=== PATIENT | female | born 2000 | race Hispanic/Latino ===

== ENCOUNTER 2023-11-02 19:56 | Emergency (ER) | payer SELFPAY ==
[2023-11-02 21:20] LABS: Specific Gravity 1.019 (1.005-1.030)
[2023-11-02 21:23] LABS: Specific Gravity 1.019 (1.005-1.030); Urine Bacteria <20 /HPF (<20); Urine Bilirubin NEGATIVE (Negative); Urine Blood Negative (Negative); Urine Clarity Extremely Turbid (Clear); Urine Color Light-Yellow (Yellow); Urine Culture Reflex Order REFLEXED; Urine Glucose NEGATIVE (Negative); Urine Ketones NEGATIVE (Negative); Urine Micro Reflex YN NO BILL MICROSCOPIC; Urine Mucus Slight /HPF (None Seen); Urine Nitrite NEGATIVE (Negative); Urine Protein TRACE (Negative); Urine RBC <5 /HPF (None Seen); Urine Urobilinogen Normal (Normal); Urine WBC 20-50 /HPF (<5); Urine WBC Clump Rare /HPF (None Seen)
[2023-11-02] MEDS ORDERED: NITROFURAN MACRO 100 MG CAP PO ONE (21:41)
--- NOTE | 2023-11-02 21:42 | EDPHYS ---
Physician Documentation [facility] Name: Dejah Lugo Age: 23 yrs Sex: Female : 2000 Arrival Date: 11/02/2023 Time: 19:56 Bed 9 Private MD: ED Physician Cash Wolf HPI: 11/01 20:06 This 23 yrs old Female presents to ER via Unassigned with complaints of Pain sp4 With Urination. 21:44 The patient presents with urinary symptoms, dysuria. Onset: The symptoms/episode sb4 began/occurred 3 day(s) ago. Modifying factors: The symptoms are alleviated by nothing, the symptoms are aggravated by nothing. 21:46 Associated signs and symptoms: The patient has no apparent associated signs or sb4 symptoms. The patient has experienced a previous episode, many years ago. The patient has not recently seen a physician. 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 - Infectious Disease History:: Denies. - Social history:: Smoking status: Patient denies any tobacco usage or history of. ROS: 21:46 Positive for urinary symptoms, burning with urination, sb4 21:46 Constitutional: Negative for fever, chills, and weight loss, 21:46 All other systems are negative, Exam: 21:46 Constitutional: This is a well developed, well nourished patient who is awake, alert, sb4 and in no acute distress. Head/Face: Normocephalic, atraumatic. Eyes: Extra-ocular motions intact. Periorbital areas with no swelling, redness, or edema. Cardiovascular: Regular rate and rhythm with a normal S1 and S2. Respiratory: Lungs have equal breath sounds bilaterally, clear to auscultation and percussion. No rales, rhonchi or wheezes noted. No increased work of breathing, no retractions or nasal flaring. Abdomen/GI: Soft, non-tender, no distension. Back: No spinal tenderness. No costovertebral tenderness. Full range of motion. Skin: Warm, dry with normal turgor. Normal color with no rashes, no lesions, and no evidence of cellulitis. Vital Signs: 20:31 BP 144 / 106; Pulse 96; Resp 16; Temp 98.2(O); Pulse Ox 97% ; Weight 85.73 kg; Height 5 kd3 ft. 1 in. ; Pain 5/10; 20:31 Body Mass Index 35.71 (85.73 kg, 154.94 cm) kd3 20:31 Pain Scale: Adult kd3 MDM: 20:21 Patient medically screened. sp4 21:40 Data reviewed: vital signs, nurses notes, lab test result(s), and as a result, I will sb4 discharge patient. Care significantly affected by the following chronic conditions: Obesity. Counseling: I had a detailed discussion with the patient and/or guardian regarding the historical points, exam findings, and any diagnostic results supporting the discharge/admit diagnosis, the presence of at least one elevated blood pressure reading (>120/80) during this emergency department visit, lab results, to return to the emergency department if symptoms worsen or persist or if there are any questions or concerns that arise at home. 11/01 20:39 Order name: UAM; Complete Time: 21:36 sb4 11/01 20:39 Order name: Test, Urine; Complete Time: 21:37 sb4 11/01 21:38 Order name: Urine Culture EDMS Administered Medications: 21:49 Drug: Macrobid PO 100 mg PO once; administer with food Route: PO; as6 21:54 Follow up: Response: No adverse reaction as6 Disposition: 11/02 21:38 Co-signature as Attending Physician, Cash Wolf MD I agree with the assessment sp4 and plan of care. I reviewed the patient's care provided by the Advanced Practice Provider and agree with the diagnosis and treatment plan. Disposition Summary: 11/02/23 21:41 Discharge Ordered Notes: Location: Home sb4 Problem: new sb4 Symptoms: are unchanged sb4 Condition: Stable sb4 Diagnosis - UTI/ Urinary tract infection, site not specified sb4 Followup: sb4 - With: Emergency Department - When: As needed - Reason: Trouble breathing, Worsening of condition Discharge Instructions: - Discharge Summary Sheet sb4 - Urinary Tract Infection, Adult, [id number] sb4 Forms: - Antibiotic Education sb4 - Patient Portal Instructions sb4 - Leadership Thank You Letter sb4 Prescriptions: - Macrobid 100 mg Oral Capsule - take 1 capsule ORAL route every 12 hours for 7 days; 14 capsule; Refills: 0, sb4 Product Selection Permitted Signatures: Dispatcher [employer] Wilian Curran RN RN as6 Ave Aguayo RN RN kd3 Eileen Resendiz, PAMalihaC PAMaged sb4 Cash Wolf MD MD sp4 Corrections: (The following items were deleted from the chart) 11/01 21:46 21:44 Modifying factors: The symptoms are alleviated by nothing, sb4 sb4
--- NOTE | 2023-11-02 21:42 | ER ---
Nurse's Notes [facility] Name: Dejah Lugo Age: 23 yrs Sex: Female : 2000 Arrival Date: 11/02/2023 Time: 19:56 Bed 9 Private MD: Diagnosis: UTI/ Urinary tract infection, site not specified Presentation: 11/01 20:32 Chief complaint: Patient states: I just want to get tested to see if i have a uti. It kd3 kim when i urinate since 3 days ago. Coronavirus screen: Vaccine status: Patient reports being unvaccinated. Ebola Screen: No symptoms or risks identified at this time. Initial Sepsis Screen: Does the patient meet any 2 criteria? No. Patient's initial sepsis screen is negative. Does the patient have a suspected source of infection? No. Patient's initial sepsis screen is negative. Risk Assessment: Do you want to hurt yourself or someone else? Patient reports no desire to harm self or others. Onset of symptoms was November 02, 2023. 20:32 Method Of Arrival: Ambulatory kd3 20:32 Acuity: TATO 4 kd3 Triage Assessment: 20:33 General: Appears uncomfortable, Behavior is anxious. Pain: Complains of pain in pain kd3 with urination. 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 - Infectious Disease History:: Denies. - Social history:: Smoking status: Patient denies any tobacco usage or history of. Screenin:54 [facility] ED Fall Risk Assessment (Adult) History of falling in the last 3 months, as6 including since admission No falls in past 3 months (0 pts) Confusion or Disorientation No (0 pts) Intoxicated or Sedated No (0 pts) Impaired Gait No (0 pts) Mobility Assist Device Used No (0 pt) Altered Elimination No (0 pt) Score/Fall Risk Level 0 - 2 = Low Risk Oriented to surroundings, Maintained a safe environment, Educated pt \T\ family on fall prevention, incl call for assistance when getting out of bed, Assessed \T\ reinforced patient's understanding of fall precautions. Abuse screen: Denies threats or abuse. Denies injuries from another. Nutritional screening: No deficits noted. Tuberculosis screening: No symptoms or risk factors identified. Assessment: 21:55 : Reports burning with urination, urgency, urinary frequency. as6 Vital Signs: 20:31 BP 144 / 106; Pulse 96; Resp 16; Temp 98.2(O); Pulse Ox 97% ; Weight 85.73 kg; Height 5 kd3 ft. 1 in. ; Pain 5/10; 20:31 Body Mass Index 35.71 (85.73 kg, 154.94 cm) kd3 20:31 Pain Scale: Adult kd3 ED Course: 20:01 Patient arrived in ED. gm2 20:05 Cash Wolf MD is Attending Physician. sp4 20:12 Eile[facility] Resendiz [facility] sb4 20:33 Triage completed. kd3 20:33 Arm band placed on right wrist. kd3 21:30 Wilian Win RN is Primary Nurse. as6 21:54 Bed in low position. Call light in reach. Provided Education on: abx teaching. as6 21:54 No provider procedures requiring assistance completed. Patient did not have IV access as6 during this emergency room visit. Administered Medications: 21:49 Drug: Macrobid PO 100 mg PO once; administer with food Route: PO; as6 21:54 Follow up: Response: No adverse reaction as6 Medication: 21:55 VIS not applicable for this client. as6 Outcome: 21:41 Discharge ordered by . sb4 21:54 Discharged to home ambulatory, as6 21:54 Condition: stable 21:54 Discharge instructions given to patient, Instructed on discharge instructions, follow up and referral plans. medication usage, Demonstrated understanding of instructions, follow-up care, medications, Prescriptions given X 1, 21:55 Patient left the ED. as6 Signatures: Wilian Win RN RN as6 Ave Aguayo RN RN kd3 Eileen Resendiz PA-C PA-C sb4 Cash Wolf MD MD sp4 Luzmaria Oleary gm2
[2023-11-02 22:22] VITALS: BP 144/106; TEMP 98.2; O2SAT 97
== END 2023-11-02 21:55 | disposition home or self-care (01) ==
LOC: ER 19:56
DX: N39.0 Urinary tract infection, site not specified (principal)
CPT/HCPCS: 81001; 81025; 87086; 87088; 99283